=== PATIENT | male | born 1965 | race American Indian/Alaskan Native ===

== ENCOUNTER 2018-10-11 06:06 | Day surgery (SDC) | payer MEDICARE ==
[2018-10-11] MEDS ORDERED: NACL 0.9% 1000 ML 1,000 ML IV SCH (07:00)
[2018-10-11] MEDS ORDERED: SUBLIMAZE ONE (07:28)
[2018-10-11] MEDS ORDERED: DIPRIVAN 10 MG/ML IV ONE ×3 (07:29)
--- NOTE | 2018-10-11 08:28 | Short Stay Summary ---
Short Stay Documentation - Allergies and Medications Current Medications: Allergies diphenhydramine HCl [From Benadryl] Allergy (Verified 03/26/14 10:54) Rash latex Allergy (Verified 03/26/14 10:54) Rash Home Medications Medication Instructions Recorded Confirmed Last Taken Type Perphenazine 1 tab PO DAILY 03/26/14 10/11/18 10/08/18 History Gabapentin 300 mg PO 6XD 10/11/18 10/11/18 10/08/18 History Prilosec 20 mg PO DAILY 10/11/18 10/11/18 10/08/18 History Trintellix 20 mg PO DAILY 10/11/18 10/11/18 10/08/18 History Wellbutrin 150 mg PO DAILY 10/11/18 10/11/18 10/08/18 History Zanaflex 2mg CAP 4 mg PO DAILY 10/11/18 10/11/18 10/08/18 History Active Medications Sodium Chloride (Nacl 0.9% 1000 Ml) 1,000 mls @ 50 mls/hr IV DIRECT BRANDON Last Admin: 10/11/18 07:27 Dose: 50 mls/hr Documented by: - Brief post op/procedure progress note Date of procedure: 10/11/18 Pre-op diagnosis: 1. epigastric pain 2. Acid peptic disease 3. Colon cancer screening Post-op diagnosis: same (EGD: 1. GERD 2. Gastritis 3. Duodenitis Colonoscopy: Internal hemorrhoids) Procedure: 1. EGD with biopsy 2. Colonoscopy Anesthesia: MAC Findings: as above Surgeon: BONI ROBERSON Estimated blood loss: none Pathology: list (1. Antrum) Condition: stable - Disposition Condition at discharge: Stable Disposition: DC-01 TO HOME OR SELFCARE Short Stay Discharge Plan Activity: no restrictions Weight Bearing Status: Full Weight Bearing Diet: regular, low salt Additional Instructions: Post Sedation D/C Instructions When you return home you may resume your regular diet unless otherwise directed. -Go directly home from the hospital and rest quietly. You may resume normal activities tomorrow. -Do NOT drive, return to work, operate any machinery or make any important personal or business decisions today. -Do NOT drink any alcohol or take nerve or sleeping drugs. They add to the effects of the medicine still present in your body. -NO ASPIRIN OR NSAIDS NEXT 2-3 DAYS Follow up with: GILBERT PAYNE MD [Primary Care Provider] - 7 Days
[2018-10-11 08:46] VITALS: BP 128/83
[2018-10-11] MEDS ORDERED: WATER FOR IRRIG STERILE IR ONE (09:43)
[2018-10-11] MEDS ORDERED: ZOFRAN ONE (10:00)
== END 2018-10-11 06:07 | disposition home or self-care (01) ==
LOC: GIO 06:06
PROVIDERS: ATTEND Internal Medicine Gastroenterology
DX: Z12.11 Encounter for screening for malignant neoplasm of colon (principal); K29.50 Unspecified chronic gastritis without bleeding; K64.0 First degree hemorrhoids; K21.9 Gastro-esophageal reflux disease without esophagitis; K29.80 Duodenitis without bleeding; B96.81 Helicobacter pylori [H. pylori] as the cause of diseases classified elsewhere; I42.9 Cardiomyopathy, unspecified; Z79.899 Other long term (current) drug therapy; Z98.49 Cataract extraction status, unspecified eye; Z90.49 Acquired absence of other specified parts of digestive tract; Z72.89 Other problems related to lifestyle; Z98.890 Other specified postprocedural states; Z87.891 Personal history of nicotine dependence; Z91.040 Latex allergy status; Z88.8 Allergy status to other drugs, medicaments and biological substances
CPT/HCPCS: 43239; 45378; 88305; 88342; J2405; J2704; J3010; J7030

== ENCOUNTER 2019-04-15 10:28 | Emergency (ER) | payer MEDICARE ==
[2019-04-15] MEDS ORDERED: ASPIRIN 325 MG TAB PO ONE (10:45)
--- NOTE | 2019-04-15 11:48 | XRay Report ---
CHEST 2 VIEWS INDICATION: Chest Pain. COMPARISON: None. FINDINGS: Support devices: None. Heart: Within normal limits. Lungs/Pleura: No acute air space or interstitial disease. No significant pleural effusion. IMPRESSION: No acute findings. Signer Name: Jose Luis Schmitz MD Signed: 04/15/2019 11:44 AM Workstation Name: [id number]
[2019-04-15] MEDS ORDERED: ONDANSETRON 4 MG/2 ML INJ IV ONE (11:51)
[2019-04-15] MEDS ORDERED: SODIUM CHLORIDE 0.9% 1000 ML 1,000 ML IV ONE (11:51)
[2019-04-15] MEDS ORDERED: FAMOTIDINE 20 MG/2 ML INJ IV ONE (11:51)
[2019-04-15 13:26] LABS: Basophils % (Auto) 0.7 % (0.0-1.8); Eosinophils # (Auto) 0.1 K/mm3 (0.0-0.4); Eosinophils % (Auto) 1.4 % (0.0-4.3); Hematocrit 52.8 % (35.5-45.6); Hemoglobin 18.1 gm/dl (11.8-15.2); Lymphocytes # (Auto) 1.9 K/mm3 (1.2-5.4); Lymphocytes % (Auto) 33.8 % (13.4-35.0); Mean Corpuscular HGB Conc 34 % (32-34); Mean Corpuscular Volume 91 fl (84-94); Monocytes # (Auto) 0.4 K/mm3 (0.0-0.8); Monocytes % (Auto) 7.3 % (0.0-7.3); Platelet Count 191 K/mm3 (140-440); Red Blood Count 5.79 M/mm3 (3.65-5.03); Red Cell Distribution Width 13.5 % (13.2-15.2)
[2019-04-15 13:54] LABS: Alanine Aminotransferase 48 units/L (7-56); Albumin 4.4 g/dL (3.9-5); BUN/Creatinine Ratio 11; Blood Urea Nitrogen 9 mg/dL (9-20); Calcium 9.8 mg/dL (8.4-10.2); Hemolysis Index 66
--- NOTE | 2019-04-15 14:18 | Emergency Department Report ---
ED Abdominal Pain HPI - General Chief Complaint: Chest Pain Stated Complaint: SOB Time Seen by Provider: 04/15/19 11:46 Source: patient Mode of arrival: Ambulatory Limitations: No Limitations - History of Present Illness Initial Comments: Patient is a 53-year-old -Citizen Of [place] male who is presenting with epigastric pain. Patient states that pain is been present for approximately 5 to 6 days. He has been taking [id number] Prevacid. Said several episodes of nausea vomiting and a bloated feeling in his abdomen. Patient is status post gerald cystectomy. Patient states that discomfort does sometimes radiate into the mid chest as well. He denies cough cold or congestion fevers or chills. Patient states when the discomfort radiates into the center chest does have some shortness of breath. - Related Data Home Medications Medication Instructions Recorded Confirmed Last Taken Perphenazine 1 tab PO DAILY 03/26/14 10/11/18 10/08/18 Gabapentin 300 mg PO 6XD 10/11/18 10/11/18 10/08/18 Prilosec 20 mg PO DAILY 10/11/18 10/11/18 10/08/18 Trintellix 20 mg PO DAILY 10/11/18 10/11/18 10/08/18 Wellbutrin 150 mg PO DAILY 10/11/18 10/11/18 10/08/18 Zanaflex 2mg CAP 4 mg PO DAILY 10/11/18 10/11/18 10/08/18 Previous Rx's Medication Instructions Recorded Last Taken Type Dicyclomine [Bentyl] 20 mg PO QID #10 tablet 04/15/19 Unknown Rx Ondansetron [Zofran Odt] 4 mg PO Q8HR #10 tab.rapdis 04/15/19 Unknown Rx Pantoprazole [Protonix] 40 mg PO QDAY #30 tablet 04/15/19 Unknown Rx Allergies Allergy/AdvReac Type Severity Reaction Status Date / Time diphenhydramine HCl Allergy Rash Verified 03/26/14 10:54 [From Benadryl] latex Allergy Rash Verified 03/26/14 10:54 ED Review of Systems ROS: Stated complaint: SOB Other details as noted in HPI Comment: All other systems reviewed and negative ED Past Medical Hx - Past Medical History Previous Medical History?: Yes Hx GERD: Yes Hx Asthma: No Hx COPD: No Hx Tuberculosis: No Hx HIV: No - Surgical History Past Surgical History?: Yes Hx Cholecystectomy: Yes - Social History Smoking Status: Former Smoker - Medications Home Medications: Home Medications Medication Instructions Recorded Confirmed Last Taken Type Perphenazine 1 tab PO DAILY 03/26/14 10/11/18 10/08/18 History Gabapentin 300 mg PO 6XD 10/11/18 10/11/18 10/08/18 History Prilosec 20 mg PO DAILY 10/11/18 10/11/18 10/08/18 History Trintellix 20 mg PO DAILY 10/11/18 10/11/18 10/08/18 History Wellbutrin 150 mg PO DAILY 10/11/18 10/11/18 10/08/18 History Zanaflex 2mg CAP 4 mg PO DAILY 10/11/18 10/11/18 10/08/18 History Dicyclomine [Bentyl] 20 mg PO QID #10 tablet 04/15/19 Unknown Rx Ondansetron [Zofran Odt] 4 mg PO Q8HR #10 tab.rapdis 04/15/19 Unknown Rx Pantoprazole [Protonix] 40 mg PO QDAY #30 tablet 04/15/19 Unknown Rx ED Physical Exam - General Limitations: No Limitations General appearance: alert, in no apparent distress - Head Head exam: Present: atraumatic, normocephalic - Eye Eye exam: Present: normal appearance - ENT ENT exam: Present: mucous membranes moist - Neck Neck exam: Present: normal inspection - Respiratory Respiratory exam: Present: normal lung sounds bilaterally. Absent: respiratory distress, wheezes, rales, rhonchi - Cardiovascular Cardiovascular Exam: Present: regular rate, normal rhythm. Absent: systolic murmur, diastolic murmur, rubs, gallop - GI/Abdominal GI/Abdominal exam: Present: soft, normal bowel sounds. Absent: distended, tenderness, guarding, rebound - Rectal Rectal exam: Present: deferred - Extremities Exam Extremities exam: Present: normal inspection - Back Exam Back exam: Present: normal inspection - Neurological Exam Neurological exam: Present: alert, oriented X3 - Psychiatric Psychiatric exam: Present: normal affect, normal mood - Skin Skin exam: Present: warm, dry, intact, normal color. Absent: rash ED Course Vital Signs 04/15/19 10:37 Temperature 97.9 F Pulse Rate 110 H Respiratory 16 Rate Blood Pressure 150/100 O2 Sat by Pulse 99 Oximetry ED Medical Decision Making - Lab Data Result diagrams: 04/15/19 11:17 04/15/19 11:17 Lab Results 04/15/19 04/15/19 04/15/19 Range/Units 11:17 11:17 11:17 WBC 5.5 (4.5-11.0) K/mm3 RBC 5.79 H (3.65-5.03) M/mm3 Hgb 18.1 H (11.8-15.2) gm/dl Hct 52.8 H (35.5-45.6) % MCV 91 (84-94) fl MCH 31 (28-32) pg MCHC 34 (32-34) % RDW 13.5 (13.2-15.2) % Plt Count 191 (140-440) K/mm3 Lymph % (Auto) 33.8 (13.4-35.0) % [place] % (Auto) 7.3 (0.0-7.3) % Eos % (Auto) 1.4 (0.0-4.3) % Baso % (Auto) 0.7 (0.0-1.8) % Lymph # 1.9 (1.2-5.4) K/mm3 [place] # 0.4 (0.0-0.8) K/mm3 Eos # 0.1 (0.0-0.4) K/mm3 Baso # 0.0 (0.0-0.1) K/mm3 Seg Neutrophils % 56.8 (40.0-70.0) % Seg Neutrophils # 3.1 (1.8-7.7) K/mm3 Sodium 137 (137-145) mmol/L Potassium 4.3 (3.6-5.0) mmol/L Chloride 100.5 (98-107) mmol/L Carbon Dioxide 18 L (22-30) mmol/L Anion Gap 23 mmol/L BUN 9 (9-20) mg/dL Creatinine 0.8 (0.8-1.5) mg/dL Estimated GFR > 60 ml/min BUN/Creatinine Ratio 11 % Glucose 114 H (75-100) mg/dL Calcium 9.8 (8.4-10.2) mg/dL Total Bilirubin 0.80 (0.1-1.2) mg/dL AST 33 (5-40) units/L ALT 48 (7-56) units/L Alkaline Phosphatase 115 (35-129) units/L Troponin T < 0.010 (0.00-0.029) ng/mL Total Protein 8.6 H (6.3-8.2) g/dL Albumin 4.4 (3.9-5) g/dL Albumin/Globulin Ratio 1.0 % Lipase 18 (13-60) units/L - EKG Data -: EKG Interpreted by Me EKG shows normal: sinus rhythm, axis, intervals, QRS complexes, ST-T waves Rate: normal - EKG Data Interpretation: normal EKG - Radiology Data CXR WNL - Medical Decision Making Patient is differential diagnosis includes GERD hepatitis pancreatitis diverticulitis peptic ulcer disease. Patient with epigastric discomfort nausea vomiting. Patient given IV fluids and antiemetics and he states he is feeling less nauseous. Laboratory studies showed normal white count with normal chemistries. Life-threatening conditions have been ruled out. Emergency department. Patient does not have a surgical abdomen. Patient likely with advancement of his peptic ulcer disease the patient will be given medications for his nausea as well as started on Protonix. Patient discharged home with follow-up with gastroenterology Critical care attestation.: If time is entered above; I have spent that time in minutes in the direct care of this critically ill patient, excluding procedure time. ED Disposition Clinical Impression: PUD (peptic ulcer disease) GERD (gastroesophageal reflux disease) Qualifiers: Esophagitis presence: esophagitis presence not specified Qualified Code(s): K21.9 - Gastro-esophageal reflux disease without esophagitis Nausea & vomiting Qualifiers: Vomiting type: unspecified Vomiting Intractability: non-intractable Qualified Code(s): R11.2 - Nausea with vomiting, unspecified Disposition: DC-01 TO HOME OR SELFCARE Is pt being admited?: No Does the pt Need Aspirin: No Condition: Stable Instructions: Diet for Ulcers and Gastritis (ED), Gastroesophageal Reflux Disease (ED) Referrals: [facility] [Provider Group] - 3-5 Days Time of Disposition: 14:19
[2019-04-15 14:42] VITALS: BP 132/89
== END 2019-04-15 14:42 | disposition home or self-care (01) ==
LOC: ED 10:28
DX: K21.9 Gastro-esophageal reflux disease without esophagitis (principal); K27.9 Peptic ulcer, site unspecified, unspecified as acute or chronic, without hemorrhage or perforation; R11.2 Nausea with vomiting, unspecified; Z90.49 Acquired absence of other specified parts of digestive tract; Z91.040 Latex allergy status; Z88.8 Allergy status to other drugs, medicaments and biological substances; Z87.891 Personal history of nicotine dependence; Z79.899 Other long term (current) drug therapy
CPT/HCPCS: 36415; 71046; 80053; 83690; 84484; 85025; 93005; 93010; 96361; 96374; 96375; 99284; J2405; J7030